=== PATIENT | male | born 1995 | race Caucasian/White ===

== ENCOUNTER 2023-08-05 16:22 | Outpatient (CLI) | payer BC, SELFPAY ==
[2023-08-05 17:21] LABS: Thyroid Stimulating Hormone < 0.015 uIU/mL (0.465-4.680)
[2023-08-05 17:52] LABS: Free T4 Free Thyroxine 2.38 ng/mL (0.78-2.19)
[2023-08-09 03:12] LABS: Thyroglobulin 0.5 ng/mL (2.8-40.9); Thyroglobulin Antibodies 3 IU/mL (<=1); Thyroid Peroxidase Antibodies 155 IU/mL (<9)
== END 2023-08-05 16:23 | disposition home or self-care (01) ==
LOC: ANHLAB 16:25
PROVIDERS: PCP Family Medicine; Visit Provider Family Medicine
DX: E05.90 Thyrotoxicosis, unspecified without thyrotoxic crisis or storm (principal)
CPT/HCPCS: 36415; 84432; 84439; 84443; 86376; 86800

== ENCOUNTER 2023-09-02 15:02 | Outpatient (CLI) | payer BC, SELFPAY ==
[2023-09-02 16:02] LABS: Thyroid Stimulating Hormone < 0.015 uIU/mL (0.465-4.680); Total Triiodothyronine (T3) 3.17 NG/ML (0.97-1.69)
[2023-09-02 16:26] LABS: Free T4 Free Thyroxine 4.34 ng/mL (0.78-2.19)
[2023-09-05 19:49] LABS: Thyrotropin Receptor Antibody 6.97 IU/L (<=2.00)
[2023-09-08 14:10] LABS: Thyroid Stimulating Immunoglob 205 % baseline (<140)
== END 2023-09-02 15:03 | disposition home or self-care (01) ==
LOC: ANHLAB 15:03
PROVIDERS: PCP Family Medicine; Visit Provider Internal Medicine
DX: Z86.39 Personal history of other endocrine, nutritional and metabolic disease (principal)
CPT/HCPCS: 36415; 83519; 84439; 84443; 84445; 84480

== ENCOUNTER 2024-01-16 07:54 | Outpatient (CLI) | payer BC, SELFPAY ==
[2024-01-16 09:47] LABS: Free T4 Free Thyroxine 0.93 ng/mL (0.78-2.19)
== END 2024-01-16 07:55 | disposition home or self-care (01) ==
LOC: ANHLAB 07:55
PROVIDERS: PCP Family Medicine; Visit Provider Internal Medicine
DX: E05.90 Thyrotoxicosis, unspecified without thyrotoxic crisis or storm (principal)
CPT/HCPCS: 36415; 84439; 84480